=== PATIENT | female | born 1955 | race Caucasian/White ===

== ENCOUNTER 2016-08-13 16:19 | Emergency (ER) | payer MEDICAID ==
[~2016-08-13] VITALS: Ht 167.6 cm; Wt 85.4 kg
[2016-08-13 16:44] VITALS: BP 137/74
[2016-08-13] MEDS ORDERED: KETOROLAC 30 MG/1 ML IM ONE (17:30)
[2016-08-13] MEDS ORDERED: KETOROLAC 30 MG/1 ML ONE (17:32)
== END 2016-08-13 17:46 ==
LOC: ED 17:40
DX: M25.562 Pain in left knee (principal); G89.29 Other chronic pain; Z88.0 Allergy status to penicillin; Z98.51 Tubal ligation status
CPT/HCPCS: 73564; 96372; 99284; J1885

== ENCOUNTER 2018-04-18 10:47 | Emergency (ER) | payer MEDICAID ==
[~2018-04-18] VITALS: Ht 167.6 cm; Wt 83.0 kg
[2018-04-18 10:52] VITALS: BP 135/84
== END 2018-04-18 11:55 | disposition home or self-care (01) ==
LOC: ED 11:45
DX: J32.1 Chronic frontal sinusitis (principal); J32.0 Chronic maxillary sinusitis; Z72.0 Tobacco use
CPT/HCPCS: 99283; 99406

== ENCOUNTER 2018-09-15 07:06 | Emergency (ER) | payer MEDICARE, MEDICAID ==
[~2018-09-15] VITALS: Ht 167.6 cm; Wt 80.0 kg
[2018-09-15 07:11] VITALS: BP 128/74
--- NOTE | 2018-09-15 07:23 | NUR ---
CONTACT WITH PT, 63 YR OLD FEMALE HERE WITH C/O "RIGHT CALF PAIN, SEVERLY SINCE THU, STATED ON SAT." NO KNOWN INJURY. JPadilla PA AT BEDSIDE TO AAMIR PT
[2018-09-15] MEDS ORDERED: TYLENOL PM PO (07:27)
[2018-09-15] MEDS ORDERED: KETOROLAC 30 MG/1 ML ONE (08:44)
--- NOTE | 2018-09-15 08:50 | NUR ---
YARIEL WRAP APPLIED, CMS INTACT. PT MEDICATED FOR 4/10 PAIN DIRECTED. PT REPORTS HAVING RECEIVED TORADOL BEFORE WITHOUT ADVERSE REACTION NOTED. NO IV TO DC. REVIEWED DC INSTRUCTIONS WITH PT. UNDERSTANDING VERBALIZED. PT DECLINED CANE OR CRUTCHES. PT LEFT AMB, GAIT SLOW AND STEADY.
[2018-09-15] MEDS ORDERED: KETOROLAC 30 MG/1 ML IM ONE (09:00)
== END 2018-09-15 09:08 | disposition home or self-care (01) ==
LOC: ED 08:45
DX: S86.111A Strain of other muscle(s) and tendon(s) of posterior muscle group at lower leg level, right leg, initial encounter (principal); X58.XXXA Exposure to other specified factors, initial encounter; Y93.89 Activity, other specified; Y92.89 Other specified places as the place of occurrence of the external cause; Y99.8 Other external cause status
CPT/HCPCS: 93971; 96372; 99284; J1885

== ENCOUNTER 2020-02-22 13:51 | Emergency (ER) | payer MEDICARE, MEDICAID ==
[~2020-02-22 13:51] MED LIST: TYLENOL PM PO
--- NOTE | 2020-02-22 14:27 | NUR ---
PT NILX1.
--- NOTE | 2020-02-22 14:32 | NUR ---
PT NILX2.
--- NOTE | 2020-02-22 14:43 | NUR ---
PT NILX3.
== END 2020-02-22 15:29 ==
LOC: ED 15:23
DX: R10.9 Unspecified abdominal pain (principal); R11.0 Nausea; Z53.21 Procedure and treatment not carried out due to patient leaving prior to being seen by health care provider